=== PATIENT | female | born 1980 | race Caucasian/White ===

== ENCOUNTER 2016-06-07 08:03 | Day surgery (SDC) | payer OTHER ==
[~2016-06-07] VITALS: Ht 170.2 cm; Wt 99.5 kg
[~2016-06-07 08:03] MED LIST: BENTYL10 MG PO; INDERAL10 MG PO; LITHIUM CARBON300 MG PO; OMEPRAZOLE20 M1 PO; SEROQUEL400 MG PO; TYLENOL W/CODEI1 TAB PO; VITAMIN D50000 UNIT PO; XANAX0.5 MG PO; ZOLOFT100 MG PO
[2016-06-07 09:52] VITALS: BP 125/70; Ht 170.2 cm; Wt 99.5 kg
[2016-06-07 09:59] LABS: HCG SERUM NEGATIVE (NEGATIVE)
[2016-06-07 10:01] LABS: HEMATOCRIT 37.9 % (36.0-48.0); HEMOGLOBIN 11.6 g/dL (12-16); MCH 27.2 pg (26.0-34.0); MCHC 30.6 g/dL (31.0-37.0); MCV 88.8 fL (80.0-100.0); MEAN PLATELET VOLUME 10.3 fL (7.4-10.4); RBC 4.27 10x6/uL (4.00-5.40); RDW 14.2 % (11.5-14.5); WBC 8.6 10x3/uL (4.8-10.8)
[2016-06-07] MEDS ORDERED: ZANTAC150 MG PO (11:53)
--- NOTE | 2016-06-07 14:33 | NUR ---
1250 AWAKE & ALERT. DRESSED, SITTING UP ON SIDE OF BED. RETAINED LIQUIDS, UP TO BATHROOM WITHOUT DIFFICULTY, & IV DC'ED WITH CATH INTACT BY Yoav DURAND R.N.. GIVEN D/C INFROMATION INCLUDING MED REC., SHEET LISTING NSAIDS TO AVOID, RX: ZANTAC 150MG, REFLUX ESOPHAGITIS DIET, & D/C INSTRUCTION SHEET POST ENDOSCOPIC PROCEDURES. Rosita BOYLE R.N.
--- NOTE | 2016-06-08 10:00 | OP ---
PATIENT NAME: ANT MARKS MEDICAL RECORD: [id number] :80 LOCATION:[facility] ADMISSION DATE: SURGEON: PHUONG GARCIA DO DATE OF OPERATION: 06/07/2016 PROCEDURE: EGD with biopsies. INDICATIONS: Heartburn, nausea, pain provoked by eating. SCOPE: Olympus video gastroscope. MEDICATIONS: Propofol per anesthesia. ESTIMATED BLOOD LOSS: Minimal. FINDINGS: Informed consent was given. The patient was made comfortable with the above medication. After reaching an adequate level of sedation by slow IV push, the patient was placed on her left side. The endoscope was then advanced under direct visualization through the mouth to the second portion of the duodenum. The upper, middle, and distal thirds of the esophagus appeared normal. At the GE junction, there was some mild LA class A reflux induced esophagitis. The endoscope was advanced through the GE junction into the stomach and retroflexed to view the cardia and fundus. Both of these sites appeared normal. The endoscope was then advanced down to the antrum and prepyloric region, which also appeared normal. Random biopsies were taken from the antrum, incisura, and body of the stomach to send for histology and rule out H. pylori. The endoscope was advanced into the duodenum where the bulb and second portion of the duodenum appeared normal. It was then withdrawn from the patient. The patient tolerated the procedure well and there were no complications. IMPRESSION: Mild LA class A reflux induced esophagitis. PLAN AND RECOMMENDATIONS: 1. Discharge home when recovery parameters are met. 2. Continue current medications, including omeprazole 20 mg p.o. q.a.m. 3. Add Zantac 150 mg tablets 1-2 p.o. q.h.s. p.r.n. reflux and heartburn. 4. Consider a gastric emptying scan if ongoing symptoms while on these medications. 5. Follow up in the GI clinic as needed. TRANSINT:[id number] Voice Confirmation ID: [id number] DOCUMENT ID: [id number] PHUONG GARCIA DO at 1000 CC: [id number] DICTATION DATE: 06/07/16 1117 SHIP SCALER: 06/07/16 1301 [facility] 06/07/16 [place] [address]
== END 2016-06-07 12:50 | disposition home or self-care (01) ==
LOC: D.OPS 08:03
PROVIDERS: Anesthesiology
DX: K21.0 Gastro-esophageal reflux disease with esophagitis (principal); R12 Heartburn; R11.0 Nausea; R10.30 Lower abdominal pain, unspecified; Z01.812 Encounter for preprocedural laboratory examination